=== PATIENT | female | born 1980 | race African-American/Black ===

== ENCOUNTER 2017-09-27 21:28 | Emergency (ER) | payer OTHER ==
[~2017-09-27] VITALS: Ht 165.1 cm; Wt 84.1 kg
[2017-09-27 22:39] VITALS: BP 118/68
== END 2017-09-27 22:40 | disposition home or self-care (01) ==
LOC: EMS 21:29
DX: J32.9 Chronic sinusitis, unspecified (principal); H66.92 Otitis media, unspecified, left ear
CPT/HCPCS: 99283

== ENCOUNTER 2019-05-02 23:37 | Emergency (ER) | payer OTHER ==
[~2019-05-02] VITALS: Ht 165.1 cm; Wt 86.4 kg
[2019-05-03 04:40] VITALS: BP 118/74
[2019-05-03] MEDS ORDERED: IBUPROFEN 800 MG TABLET PO ONE (05:15)
== END 2019-05-03 05:12 | disposition home or self-care (01) ==
LOC: EMS 23:37
DX: S63.8X2A Sprain of other part of left wrist and hand, initial encounter (principal); W01.0XXA Fall on same level from slipping, tripping and stumbling without subsequent striking against object, initial encounter; Y93.89 Activity, other specified; Y92.89 Other specified places as the place of occurrence of the external cause; Y99.8 Other external cause status

== ENCOUNTER 2019-11-24 07:40 | Emergency (ER) | payer OTHER ==
[~2019-11-24] VITALS: Ht 165.1 cm; Wt 77.3 kg
[2019-11-24 07:51] VITALS: BP 109/75
[2019-11-24] MEDS ORDERED: IBUPROFEN 600 MG TABLET PO ONE (08:15)
[2019-11-24] MEDS ORDERED: ACETAMINOPHEN 500 MG TABLET PO ONE (08:15)
== END 2019-11-24 09:08 | disposition home or self-care (01) ==
LOC: EMS 07:45
DX: S46.001A Unspecified injury of muscle(s) and tendon(s) of the rotator cuff of right shoulder, initial encounter (principal); R07.81 Pleurodynia; Z90.89 Acquired absence of other organs; X58.XXXA Exposure to other specified factors, initial encounter; Y93.89 Activity, other specified; Y92.89 Other specified places as the place of occurrence of the external cause; Y99.8 Other external cause status

== ENCOUNTER 2020-01-22 11:42 | Emergency (ER) | payer OTHER ==
[~2020-01-22] VITALS: Ht 160 cm; Wt 81.8 kg
[2020-01-22 11:45] VITALS: BP 114/75
== END 2020-01-22 12:46 | disposition home or self-care (01) ==
LOC: EMS 11:45
DX: S46.001A Unspecified injury of muscle(s) and tendon(s) of the rotator cuff of right shoulder, initial encounter (principal); Z90.89 Acquired absence of other organs; X58.XXXA Exposure to other specified factors, initial encounter; Y93.89 Activity, other specified; Y92.89 Other specified places as the place of occurrence of the external cause; Y99.8 Other external cause status

== ENCOUNTER 2021-03-12 23:03 | Emergency (ER) | payer OTHER ==
[~2021-03-12] VITALS: Ht 165.1 cm; Wt 77.3 kg
[2021-03-13] MEDS ORDERED: ACETAMINOPHEN 500 MG TABLET PO ONE (01:15)
[2021-03-13] MEDS ORDERED: METOCLOPRAMIDE HCL 10 MG TABLET PO ONE (01:15)
[2021-03-13] MEDS ORDERED: MECLIZINE HCL 25 MG TABLET PO ONE (01:15)
[2021-03-13 01:25] LABS: BASOPHILS % (AUTO) 0.3 % (0.0-2.0); EOSINOPHILS % (AUTO) 2.2 % (1.0-6.0); HEMATOCRIT 34.6 % (36-46); HEMOGLOBIN 11.5 g/dL (12.0-16.0); LYMPHOCYTES # (AUTO) 3.1 K/uL (1.0-4.8); LYMPHOCYTES % (AUTO) 34.5 % (22.0-44.0); MEAN CORPUSCULAR HEMOGLOBIN 31.1 pg (26.0-34.0); MEAN CORPUSCULAR HGB CONC 33.4 G/dL (31.0-37.0); MEAN CORPUSCULAR VOLUME 93 fL (80-100); MONOCYTES # (AUTO) 0.6 K/uL (0.1-1.0); MONOCYTES % (AUTO) 7.1 % (2.0-9.0); NEUTROPHILS % (AUTO) 55.9 % (40.0-70.0); PLATELET COUNT (AUTO) 252 K/uL (150-450); RED BLOOD CELL COUNT(AUTO) 3.72 MIL/uL (4.00-5.20); RED CELL DISTRIBUTION WIDTH 12.8 % (11.5-14.5)
[2021-03-13 01:30] LABS: ANION GAP 7 mmol/L (8-16); CALCIUM, TOTAL 8.1 mg/dL (8.8-10.5); CARBON DIOXIDE 27 mmol/L (22-29); CHLORIDE 105 mmol/L (98-107); CREATININE 0.68 mg/dL (0.60-1.30); GLOMERULAR FILTR. RATE CALC > 60 mL/min (>60); GLUCOSE,RANDOM 115 mg/dL (70-110); POTASSIUM 3.5 mmol/L (3.5-5.1); SODIUM SERUM 139 mmol/L (136-145); UREA NITROGEN, BLOOD 14 mg/dL (7-18)
[2021-03-13 01:41] LABS: HCG,QUANTITATIVE < 1 mIU/mL (0-6)
[2021-03-13 02:44] VITALS: BP 107/73
== END 2021-03-13 02:54 | disposition home or self-care (01) ==
LOC: EMS 23:05
DX: R51.9 Headache, unspecified (principal); R42 Dizziness and giddiness; R11.2 Nausea with vomiting, unspecified; Z90.89 Acquired absence of other organs
CPT/HCPCS: 80048; 84702; 85025; 99284

== ENCOUNTER 2024-12-29 16:59 | Emergency (ER) | payer OTHER ==
[~2024-12-29] VITALS: Ht 165.1 cm; Wt 68.2 kg
[2024-12-29] MEDS: ACETAMINOPHEN 325 MG TABLET PO ONE (21:12)
[2024-12-29 22:35] VITALS: BP 124/73; PULSE 69; RESP 18; TEMP 98.3; O2SAT 100
== END 2024-12-29 22:47 | disposition home or self-care (01) ==
LOC: EMS 16:59
DX: S00.03XA Contusion of scalp, initial encounter (principal); M25.511 Pain in right shoulder; Z90.49 Acquired absence of other specified parts of digestive tract; W22.09XA Striking against other stationary object, initial encounter; Y93.89 Activity, other specified; Y92.89 Other specified places as the place of occurrence of the external cause; Y99.8 Other external cause status
CPT/HCPCS: 70450; 72040; 99284